=== PATIENT | female | born 1965 ===

== ENCOUNTER → 2020-06-08 | Outpatient (CLI) | payer OTHER | LOC: LAB 12:09 → LAB SHORT 06-09 12:09 | PROVIDERS: Family Medicine | DX: Z01.419 Encounter for gynecological examination (general) (routine) without abnormal findings (principal) | CPT/HCPCS: G0123 ==

== ENCOUNTER → 2022-07-30 | Outpatient (CLI) | payer OTHER | END | disposition home or self-care (01) | LOC: PLD 08:39 → LAB 08:39 → LAB SHORT 08:39 | DX: D22.72 Melanocytic nevi of left lower limb, including hip (principal) | CPT/HCPCS: 88305 ==

== ENCOUNTER → 2022-08-28 | Outpatient (CLI) | payer OTHER | LOC: LAB SHORT 08:31 → PLD 08:31 | DX: D48.5 Neoplasm of uncertain behavior of skin (principal) | CPT/HCPCS: 88305 ==

== ENCOUNTER 2024-10-13 11:55 | Day surgery (SDC) | payer BC, OTHER ==
[~2024-10-13] VITALS: Ht 160 cm; Wt 105.3 kg
[~2024-10-13 11:55] MED LIST: Balanced Salt Epinephrine Irrigation Solution 500 mL IR SCH; Moxifloxacin HCL 0.5 MG/0.1 ML 0.4MLSYR LEFTEYE SCH; NS 500 ML IV ONE; PHENYLEPHRINE\\TROPICAMIDE\\TETRACAINE OPHTHALMIC DILATING SOLN LEFTEYE PRN; Povidone-Iodine 450 DROP/30 ML Solution LEFTEYE SCH; Povidone-Iodine 450 DROP/30 ML Solution ONE; Tetracaine HCl/Pf 0.5% Opth Soln 4 ml ONE
[2024-10-13] MEDS ORDERED: NS 500 ML IV ONE (12:49)
--- NOTE | 2024-10-13 12:49 | NUR ---
10/13/24 [id number] Jolie Dockery CALL LIGHT WITHIN REACH.
[2024-10-13] MEDS ORDERED: Midazolam HCl 1MG / ML 2ML Vial ONE (13:20)
[2024-10-13 13:42] VITALS: BP 141/84
--- NOTE | 2024-10-13 13:50 | NUR ---
10/13/24 [id number] Madie Noe BROUGHT TO BEDSIDE
== END 2024-10-13 14:05 | disposition home or self-care (01) ==
LOC: ORSCSDS 11:55
PROVIDERS: Student in an Organized Health Care Education/Training Program
PROC: 08RK3JZ Replacement of Left Lens with Synthetic Substitute, Percutaneous Approach (ICD-10-PCS; principal; 2024-10-13 13:30)
DX: H25.12 Age-related nuclear cataract, left eye (principal); H25.813 Combined forms of age-related cataract, bilateral; H18.513 Endothelial corneal dystrophy, bilateral; H47.329 Drusen of optic disc, unspecified eye
CPT/HCPCS: J2250; J7040; V2632

== ENCOUNTER 2024-10-27 11:53 | Day surgery (SDC) | payer BC, OTHER ==
[~2024-10-27] VITALS: Ht 160 cm; Wt 105.1 kg
[~2024-10-27 11:53] MED LIST changes: -Moxifloxacin HCL 0.5 MG/0.1 ML 0.4MLSYR LEFTEYE SCH; +Moxifloxacin HCL 0.5 MG/0.1 ML 0.4MLSYR RIGHTEYE SCH; -PHENYLEPHRINE\\TROPICAMIDE\\TETRACAINE OPHTHALMIC DILATING SOLN LEFTEYE PRN; +PHENYLEPHRINE\\TROPICAMIDE\\TETRACAINE OPHTHALMIC DILATING SOLN RIGHTEYE PRN; -Povidone-Iodine 450 DROP/30 ML Solution LEFTEYE SCH; +Povidone-Iodine 450 DROP/30 ML Solution RIGHTEYE SCH
[2024-10-27] MEDS ORDERED: NS 500 ML IV ONE (13:43)
--- NOTE | 2024-10-27 15:19 | NUR ---
10/27/24 [id number] Madie Noe SIGNIFICANT OTHER BROUGHT TO BEDSIDE
[2024-10-27 15:27] VITALS: BP 115/91
== END 2024-10-27 15:25 | disposition home or self-care (01) ==
LOC: ORSCSDS 11:53
PROVIDERS: Student in an Organized Health Care Education/Training Program
PROC: 08RJ3JZ Replacement of Right Lens with Synthetic Substitute, Percutaneous Approach (ICD-10-PCS; principal; 2024-10-27 13:30)
DX: H25.811 Combined forms of age-related cataract, right eye (principal); Z96.1 Presence of intraocular lens; H18.513 Endothelial corneal dystrophy, bilateral
CPT/HCPCS: J2704; J7040; V2632